=== PATIENT | female | born 1970 | race Two or more races ===

== ENCOUNTER → 2018-03-06 | Outpatient (CLI) | payer MEDICAID | END | disposition home or self-care (01) | LOC: CFH 06:43 | PROVIDERS: ATTEND Nurse Practitioner Family | DX: M54.5 Low back pain (principal); M54.2 Cervicalgia; G89.4 Chronic pain syndrome; R60.0 Localized edema | CPT/HCPCS: 72148 ==

== ENCOUNTER → 2018-03-10 | Outpatient (CLI) | payer MEDICAID | END | disposition home or self-care (01) | LOC: RAD 08:38 | PROVIDERS: ATTEND Nurse Practitioner Family | DX: M50.30 Other cervical disc degeneration, unspecified cervical region (principal); M25.78 Osteophyte, vertebrae; R60.0 Localized edema | CPT/HCPCS: 72141 ==